=== PATIENT | female | born 1990 | race Caucasian/White ===

== ENCOUNTER 2017-04-09 22:39 | Emergency (ER) | payer OTHER ==
[~2017-04-09] VITALS: Ht 165.1 cm; Wt 60.8 kg
[~2017-04-09 22:39] MED LIST: MACR100C PO; PYRI200T4 PO
[2017-04-09 22:43] VITALS: BP 136/99; PULSE 115; RESP 18; TEMP 97.7; O2SAT 100
[2017-04-09] MEDS ORDERED: SODIUM CHLOR 0.9% 1000 ML INJ 1,000 ML IV SCH (22:53)
--- NOTE | 2017-04-09 22:56 | PD ---
HPI Chief Complaint: Flank/Kidney Pain Time Seen by Provider: 22:53 Travel History International Travel<30 days: No Contact w/Intl Traveler<30days: No Traveled to known affect area: No History of Present Illness HPI 26-year-old female with no significant past medical issues, presents to the ER today because she started feeling like she couldn't urinate this afternoon and went to get Azo when she started having right flank pain which she states is currently a 7 out of 10. She has been nauseous and vomited times one. She denies any fevers or other urinary symptoms. She denies any previous history. She does not know any exacerbating or alleviating factors. Modifying Factors: None Associated Signs & Symptoms: Urinary symptoms, right flank pain Risk Factors: None PFSH Past Medical History Diminished Hearing: No ?: Not Past Surgical History Tonsillectomy: Yes Social History Alcohol Use: No Tobacco Use: No Substance Use: No Allergies-Medications (Allergen,Severity, Reaction): Coded Allergies: No Known Allergies (Verified , 04/09/17) Reported Meds & Prescriptions Reported Meds & Active Scripts Active Review of Systems Except as stated in HPI: all other systems reviewed are Neg Physical Exam Narrative GENERAL: Well-developed young white female patient currently in mild distress. Awake and oriented 3. SKIN: Focused skin assessment warm/dry. HEAD: Atraumatic. Normocephalic. EYES: Pupils equal and round. No scleral icterus. No injection or drainage. ENT: No nasal bleeding or discharge. Mucous membranes pink and moist. NECK: Trachea midline. No JVD. CARDIOVASCULAR: Regular rate and rhythm. No murmur appreciated. RESPIRATORY: No accessory muscle use. Clear to auscultation. Breath sounds equal bilaterally. GASTROINTESTINAL: Abdomen soft, non-tender, nondistended. Hepatic and splenic margins not palpable. BACK: Mild right CVA tenderness. No rash. No point tenderness on palpation of the spine. MUSCULOSKELETAL: No obvious deformities. No clubbing. No cyanosis. No edema. NEUROLOGICAL: Awake and alert. No obvious cranial nerve deficits. Motor grossly within normal limits. Normal speech. PSYCHIATRIC: Appropriate mood and affect; insight and judgment normal. Data Data Last Documented VS Vital Signs Date Time Temp Pulse Resp B/P Pulse Ox O2 Delivery O2 Flow Rate FiO2 04/09/17 23:20 16 100 Room Air 04/09/17 22:43 97.7 115 136/99 Orders Complete Blood Count With Diff (04/09/17 22:53) Comprehensive Metabolic Panel (04/09/17 22:53) Lipase (04/09/17 22:53) Urinalysis - C+S If Indicated (04/09/17 22:53) Ct Abd/Pel W/O Iv Contrast (04/09/17 22:53) Iv Access Insert/Monitor (04/09/17 22:53) Ecg Monitoring (04/09/17 22:53) Oximetry (04/09/17 22:53) Ondansetron Inj (Zofran Inj) (04/09/17 23:00) Sodium Chlor 0.9% 1000 Ml Inj (Ns 1000 M (04/09/17 22:53) Sodium Chloride 0.9% Flush (Ns Flush) (04/09/17 23:00) Ketorolac Inj (Toradol Inj) (04/09/17 23:00) Ed Urine Pregnancytest Poc (04/09/17 22:53) Promethazine Inj (Phenergan Inj) (04/10/17 00:00) Hydromorphone Pf Inj (Dilaudid Pf Inj) (04/10/17 00:00) Labs Laboratory Tests Test 04/09/17 04/09/17 22:48 23:00 Urine Color YELLOW Urine Turbidity SLIGHT Urine pH 6.0 Urine Specific [place] 1.034 Urine Protein TRACE mg/dL Urine Glucose (UA) NEG mg/dL Urine Ketones TRACE mg/dL Urine Occult Blood SMALL Urine Nitrite NEG Urine Bilirubin NEG Urine Leukocyte Esterase NEG Urine RBC 10-14 /hpf Urine WBC 3-5 /hpf Urine Squamous Epithelial 6-8 /hpf Cells Urine Bacteria RARE /hpf Microscopic Urinalysis Comment CULT NOT INDICATED White Blood Count 7.6 TH/MM3 Red Blood Count 4.50 MIL/MM3 Hemoglobin 13.9 GM/DL Hematocrit 40.4 % Mean Corpuscular Volume 89.9 FL Mean Corpuscular Hemoglobin 30.9 PG Mean Corpuscular Hemoglobin 34.4 % Concent Red Cell Distribution Width 12.3 % Platelet Count 207 TH/MM3 Mean Platelet Volume 9.0 FL Neutrophils (%) (Auto) 32.9 % Lymphocytes (%) (Auto) 58.1 % Monocytes (%) (Auto) 7.9 % Eosinophils (%) (Auto) 0.9 % Basophils (%) (Auto) 0.2 % Neutrophils # (Auto) 2.5 TH/MM3 Lymphocytes # (Auto) 4.4 TH/MM3 Monocytes # (Auto) 0.6 TH/MM3 Eosinophils # (Auto) 0.1 TH/MM3 Basophils # (Auto) 0.0 TH/MM3 CBC Comment DIFF FINAL Differential Comment Sodium Level 142 MEQ/L Potassium Level 3.7 MEQ/L Chloride Level 107 MEQ/L Carbon Dioxide Level 29.0 MEQ/L Anion Gap 6 MEQ/L Blood Urea Nitrogen 13 MG/DL Creatinine 0.89 MG/DL Estimat Glomerular Filtration 78 ML/MIN Rate Random Glucose 96 MG/DL Calcium Level 8.9 MG/DL Total Bilirubin 0.2 MG/DL Aspartate Amino Transf 15 U/L (AST/SGOT) Alanine Aminotransferase 20 U/L (ALT/SGPT) Alkaline Phosphatase 63 U/L Total Protein 7.3 GM/DL Albumin 3.9 GM/DL Lipase 164 U/L [facility] Medical Decision Making Medical Screen Exam Complete: Yes Emergency Medical Condition: Yes Medical Record Reviewed: Yes Interpretation(s) Laboratory Tests Test 04/09/17 04/09/17 22:48 23:00 Urine Ketones TRACE mg/dL (NEG) Urine Occult Blood SMALL (NEG) Urine RBC 10-14 /hpf (0-3) Urine Squamous Epithelial 6-8 /hpf (0-5) Cells Urine Bacteria RARE /hpf (NONE) Lymphocytes (%) (Auto) 58.1 % (9.0-44.0) Estimat Glomerular Filtration 78 ML/MIN (>89) Rate Differential Diagnosis Right flank painrenal colic versus musculoskeletal versus pyelonephritis Narrative Course CT shows signs of a 2 mm stone at the right ureter causing mild obstruction. At this point, I suspect this is the cause of her current symptoms. Patient was given IV fluids, Toradol, Dilaudid, and Zofran. On reevaluation at 12 AM, she is feeling some improvement pain although she is still feeling pain. I would expect her to have some ongoing pain until the stone passes. At this point, my plan would be to give her additional pain relief and have her follow- up with her urologist. Continue to strain urine. Return for any worsening in symptoms as needed. The plan has been discussed with her and she states understanding. Diagnosis Primary Impression: Renal colic on right side Med/Other Pt SpecificInfo: Prescription(s) given Scripts Ondansetron Odt (Zofran Odt)4 Mg Tab4 Mg SL Q6HR PRN (Nausea/Vomiting) #7 TAB Ref 0 Prov:Kit Centeno MD 04/10/17 Hydrocodone-Acetaminophen (Lortab)5-325 Mg Tab1-2 Tab PO Q6H PRN (PAIN) #15 TAB Ref 0 Prov:Kit Centeno MD 04/10/17 Ibuprofen (Motrin Ib)200 Mg Nolfuj133 Mg PO QID PRN (PAIN SCALE 1 TO 10) #20 Prov:Kit Centeno MD 04/10/17 Disposition: 01 DISCHARGE HOME Condition: Stable Kit Centeno MD Apr 09, 2017 22:56
[2017-04-09] MEDS ORDERED: ONDANSETRON HCL 4 MG/2 ML VIAL IVP ONE (23:00)
[2017-04-09] MEDS ORDERED: KETOROLAC TROMETHAMINE 30 MG/ML (IVP) VIAL IVP ONE (23:00)
[2017-04-09] MEDS ORDERED: SODIUM CHLORIDE 0.9% FLUSH 10 ML FLUSH IV FLUSH PRN (23:00)
[2017-04-09 23:20] VITALS: BP 129/84; PULSE 96; RESP 16; RESP 18; O2SAT 100
[2017-04-09 23:24] LABS: BLOOD, URINE SMALL (NEG); GLUCOSE,URINE NEG (NEG); KETONE, URINE TRACE mg/dL (NEG); NITRITE,URINE NEG (NEG)
[2017-04-09 23:26] LABS: AUTOMATED NEUTROPHIL # 2.5 TH/MM3 (1.8-7.7); BASOPHIL % 0.2 % (0.0-2.0); EOSINOPHIL # 0.1 TH/MM3 (0-0.4); EOSINOPHIL % 0.9 % (0.0-4.0); HEMATOCRIT 40.4 % (35.0-46.0); HEMO FLAGS DIFF FINAL; LYMPH % 58.1 % (9.0-44.0); LYMPHOCYTE # 4.4 TH/MM3 (1.0-4.8); MEAN CELL VOLUME 89.9 FL (80.0-100.0); MEAN CORPUSCULAR HEMOGLOBIN 30.9 PG (27.0-34.0); MEAN CORPUSCULAR HGB CONC 34.4 % (32.0-36.0); MONO % 7.9 % (0.0-8.0); NEUT % 32.9 % (16.0-70.0); PLATELET COUNT 207 TH/MM3 (150-450); RED CELL DISTRIBUTION WIDTH 12.3 % (11.6-17.2); WHITE BLOOD COUNT 7.6 TH/MM3 (4.0-11.0)
[2017-04-09 23:30] LABS: BACTERIA, URINE RARE /hpf; COMMENT (UR) CULT NOT INDICATED; CULTURE IF INDICATED CULT NOT INDICATED; URINE COLOR YELLOW (YELLW/STRAW)
[2017-04-09 23:35] LABS: CHLORIDE 107 MEQ/L (98-107); POTASSIUM 3.7 MEQ/L (3.5-5.1); SODIUM (NA) 142 MEQ/L (136-145)
[2017-04-09 23:39] LABS: ANION GAP 6 MEQ/L (5-15); BLOOD UREA NITROGEN 13 MG/DL (7-18)
[2017-04-09 23:41] LABS: ALT (GPT) 20 U/L (10-53)
[2017-04-09 23:42] LABS: AST (GOT) 15 U/L (15-37); GLOMERULAR FILTRATION RATE 78 ML/MIN (>89)
[2017-04-09 23:43] LABS: TOTAL BILIRUBIN ADULT 0.2 MG/DL (0.2-1.0)
[2017-04-09 23:44] LABS: ALKALINE PHOSPHATASE 63 U/L (45-117)
--- NOTE | 2017-04-09 23:51 | RADRPT ---
EXAM DATE/TIME: 04/09/2017 23:21 [place] COMPARISON: No previous studies available for comparison. INDICATIONS : Severe on set of nausea and vomiting. Right flank pain. ORAL CONTRAST: No oral contrast ingested. RADIATION DOSE: 6.27 CTDIvol (mGy) MEDICAL HISTORY : None SURGICAL HISTORY : Tonsillectomy. ENCOUNTER: Initial ACUITY: 1 day PAIN SCALE: 10/10 LOCATION: Right flank TECHNIQUE: Volumetric scanning of the abdomen and pelvis was performed. Using automated exposure control and ad justment of the mA and/or kV according to patient size, radiation dose was kept as low as reasonably achievable to obtain optimal diagnostic quality images. DICOM format image data is available electro nically for review and comparison. FINDINGS: LOWER LUNGS: The visualized lower lungs are clear. LIVER: Homogeneous density without lesion. There is no dilation of the biliary tree. No calcified gallston es. SPLEEN: Normal size without lesion. PANCREAS: Within normal limits. KIDNEYS: Normal in size and shape. There is no mass or hydronephrosis. The mild prominence of the right colle cting system with slight hydroureter leading to a calculus at the UV junction measuring 2 mm. There i s a 2 mm lower pole right renal calculus. There are subtle bilateral renal calcifications likely medu llary nephrocalcinosis. ADRENAL GLANDS: Within normal limits. VASCULAR: There is no aortic aneurysm. BOWEL/MESENTERY: The stomach, small bowel, and colon demonstrate no acute abnormality. There is no free intraperitone al air or fluid. Normal appendix. ABDOMINAL WALL: Within normal limits. RETROPERITONEUM: There is no lymphadenopathy. BLADDER: No wall thickening or mass. REPRODUCTIVE: Within normal limits. INGUINAL: There is no lymphadenopathy or hernia. MUSCULOSKELETAL: Within normal limits for patient age. CONCLUSION: 1. Minimal obstructive uropathy on the right secondary to UVJ calculus measuring 2 mm. 2. 2 mm nonobstructing right renal calculus. 3. Subtle bilateral renal calcifications suggesting medullary nephrocalcinosis. Jeison Gay MD on April 09, 2017 at 23:47 Board Certified Radiologist. This report was verified electronically.
[2017-04-10] MEDS ORDERED: PROMETHAZINE INJ 25 MG/ML VIAL IM ONE
[2017-04-10] MEDS ORDERED: HYDROmorphone HCL PF 1 MG/ML VIAL IV PUSH ONE
[2017-04-10] MEDS ORDERED: HYDR-3533 PO (00:05)
[2017-04-10] MEDS ORDERED: IBUP-1129 PO (00:05)
[2017-04-10] MEDS ORDERED: ZOFR4TAB3 SL (00:05)
[2017-04-10 00:30] VITALS: BP 111/74; PULSE 90; RESP 16; RESP 18; O2SAT 100
== END 2017-04-10 00:40 | disposition home or self-care (01) ==
LOC: PHED 22:39
DX: N23 Unspecified renal colic (principal)
CPT/HCPCS: 74176; 80053; 81001; 83690; 84703; 85025; 96361; 96372; 96374; 96375; 99285; J1170; J1885; J2405; J2550; J7030